=== PATIENT | female | born 1955 | race Caucasian/White ===

== ENCOUNTER → 2017-01-28 | Outpatient (CLI) | payer BC ==
[~2017-01-28] MED LIST: ADVAIR 250-501 EACH IH; ALBUTEROL17 GM INH; CLEOCIN HCL300 M1 PO; DULERA 100 MCG/13 GM; ESTRACE PO; HYDROCODONE/APA1 T15 DOB; IBUPROFEN800 MG PO; NEXIUM; PERCOCET PO; PREVACID PO; SINGULAIR PO; SPIRIVA18 MCG INH; TUDORZA PRESS400 MCG; VICODIN 5/1 TAB 5/50 PO
--- NOTE | ~2017-01-28 | CT57 ---
[facility] A Service of 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 Referring Physician: Jacy West A.P.R.N. Ordering Physician: Jacy West A.P.R.N. Primary Care Physician: Jacy West A.P.R.N. MEDICAL IMAGING REPORT This report is preliminary unless electronic signature is present. EXAM CT of the chest without contrast. INDICATIONS Worsening chest congestion for 4 weeks. COPD. Chronic cough. TECHNIQUE CT of the chest performed without contrast. Coronal and sagittal reformatted images were obtained. This CT exam was performed with one or more of the following radiation dose reduction techniques: automatic exposure control, adjustment of mA and/or kV according to patient size, and iterative reconstruction. COMPARISON Comparison is made with 11/24/2015. FINDINGS Emphysema. Stable micronodule in the posterior lingula on image 34. Stable cystic change in the left lower lobe. Stable left lower lobe nodule measuring about 8 mm on image 42. Stable right upper lobe micronodule image 26. Stable right middle lobe micronodules. Stable scattered micronodules on the right lower lobe. New very small area of ground-glass opacification in the posterior right lower lobe on image 31 may represent a small area of pneumonia. There is no dense consolidation. Superior segment left lower lobe infiltrate seen on the previous study has resolved. There is stable nodularity on image 26 in the superior segment of the left lower lobe. Calcified mediastinal and hilar lymph nodes. No pleural effusion. Limited imaging of the upper abdomen is unremarkable. The bone windows are unremarkable. IMPRESSION 1. The previously noted consolidation in the superior segment of the left lower lobe has resolved. [facility] A Service of [facility] RADIOLOGY TEXT RESULTS PATIENT: LESLIE BURGOS LOCATION: [facility] : 51 UNIT #: [id number] AGE: [address]: Jacy West APRN SEX: F ORDER DR: 2. There is a new tiny area of ground glass opacification in the posterior right lower lobe which may represent a small area of pneumonia. 3. The remainder of the study is unchanged with scattered tiny subcentimeter nodules within the lungs and emphysematous change. Dictated by... Kain Oliveros M.D. THIS IS AN ELECTRONICALLY VERIFIED REPORT Kain Oliveros M.D. at 01/28/2017 4:57 PM YOSI/elle TD: 01/28/2017 16:47 JOB #: [id number] MEDICAL IMAGING REPORT Page 1 of 1
== END | disposition home or self-care (01) ==
LOC: SCT 11:08
DX: R05 Cough (principal); J98.4 Other disorders of lung; R91.8 Other nonspecific abnormal finding of lung field
CPT/HCPCS: 71250

== ENCOUNTER → 2017-06-01 | Outpatient (CLI) | payer BC ==
--- NOTE | ~2017-06-01 | EKG ---
PATIENT: LESLIE BURGOS UNIT #: [id number] Ventricular Rate: 78 BPM Atrial Rate: 78 BPM P-R Interval: 156 ms QRS Duration: 80 ms Q-T Interval: 382 ms QTC Calculation(Bezet): 435 ms P [place]: 61 degrees Calculated R [place]: 61 degrees Calculated T [place]: 53 degrees Diagnosis Line: Normal sinus rhythm Diagnosis Line: Baseline wander Otherwise normal ECG Diagnosis Line: Diagnosis Line: No previous ECGs available Diagnosis Line: Confirmed by POOL FRANKEL MD ([id number]) on 06/02/2017 Diagnosis Line: 7:03:38 PM INTERPRETING MD: JOSTIN VENTURA
[2017-06-01 11:49] LABS: HEMATOCRIT 41.4 % (35.0-45.0); HEMOGLOBIN 14.6 gm/dL (12.0-16.0); MEAN CELL VOLUME 90.6 FL (83-96); MEAN CORPUSCULAR HGB CONC 35.3 g/dL (30-36); MEAN PLATELET VOLUME 7.3 FL (6.5-11.5); RED BLOOD COUNT 4.56 X10e (3.90-5.30); RED CELL DISTRIBUTION WIDTH 12.8 % (11.0-15.5); WHITE BLOOD COUNT 7.6 X10e3 (4.0-10.5)
[2017-06-01 12:13] LABS: CALCIUM SERUM 9.4 mg/dL (8.4-10.2); CREATININE SERUM 0.6 mg/dL (0.6-1.4); POTASSIUM 3.9 mmol/L (3.5-5.1)
== END | disposition home or self-care (01) ==
LOC: SLAB 11:35
PROVIDERS: Orthopaedic Surgery
DX: Z01.818 Encounter for other preprocedural examination (principal)
CPT/HCPCS: 36415; 80048; 85027; 93005